=== PATIENT | female | born 1930 | race Hispanic/Latino ===

== ENCOUNTER 2017-04-29 14:22 | Inpatient (IN) | payer MEDICARE ==
[~2017-04-29] VITALS: Ht 129.5 cm; Wt 36.7 kg
[~2017-04-29 14:22] MED LIST: ALENDRONATE PO; AMLODIPINE PO; BENAZEPRIL PO; DONEPEZIL PO; LEVO500T89 PO
[2017-04-29 15:09] LABS: BASOPHILS % (AUTO) 0.8 % (0.0-5.0); EOSINOPHILS % (AUTO) 2.7 % (0.0-8.0); HEMATOCRIT 38.4 % (36-48); LYMPHOCYTES % (AUTO) 35.1 % (21.0-51.0); MEAN CORPUSCULAR HEMOGLOBIN 28.9 pg (27.0-33.0); MEAN CORPUSCULAR HGB CONC 33.7 g/dL (32.0-36.0); MEAN CORPUSCULAR VOLUME 85.6 fL (79-99); MONOCYTES % (AUTO) 13.6 % (3.0-13.0); NEUTROPHILS % (AUTO) 47.8 % (40.0-77.0); NUCLEATED RED BLOOD CELLS 0.1 % (0.0-0.19); PLATELET COUNT (AUTO) 112 K/uL (130-400); RED BLOOD CELL COUNT(AUTO) 4.49 MIL/uL (4.00-5.50); RED CELL DISTRIBUTION WIDTH 15.4 % (11.0-15.5); WHITE BLOOD COUNT (AUTO) 3.9 K/uL (4.8-10.8)
[2017-04-29 15:25] LABS: INR 0.96 (0.85-1.15); PARTIAL THROMBOPLASTIN TIME 30.6 SEC (26.3-35.5); PROTHROMBIN TIME 10.1 SEC (9.6-11.6)
[2017-04-29] MEDS ORDERED: NOREPINEPHRINE BITARTRATE 1 MG/1 ML ML IV ONE (15:27)
[2017-04-29 15:39] LABS: APPEARANCE,URINE Clear (CLEAR); BILIRUBIN,URINE Negative (NEGATIVE); COLOR,URINE Yellow (YELLOW); GLUCOSE, URINE (UA) Negative (NEGATIVE); KETONES,URINE Negative (NEGATIVE); LEUKOCYTE ESTERASE ,URINE Negative (NEGATIVE); NITRATE,URINE Negative (NEGATIVE); OCCULT BLOOD,URINE Negative (NEGATIVE); PH,URINE 6.5 (5.0-8.0); PROTEIN,URINE Negative (NEGATIVE)
[2017-04-29 15:41] LABS: ALBUMIN 2.8 g/dL (3.5-5.0); BILIRUBIN,TOTAL 0.5 mg/dL (0.2-1.0); CREATINE KINASE MB 3.4 ng/mL (0.5-3.6); CREATININE 1.5 mg/dL (0.5-1.5); TOTAL PROTEIN, SERUM 5.7 g/dL (6.0-8.3)
[2017-04-29 15:47] LABS: POTASSIUM 2.6 mmol/L (3.5-5.1); TROPONIN I 0.65 ng/mL (0.00-0.06)
[2017-04-29] MEDS ORDERED: CEFTRIAXONE SODIUM 1 GM ONE (15:48)
[2017-04-29] MEDS ORDERED: OSELTAMIVIR PHOSPHATE 75 MG CAP ONE (16:00)
[2017-04-29] MEDS ORDERED: POTASSIUM BICARB/CIT AC 25 MEQ TABLET.EFF ONE (16:01)
[2017-04-29] MEDS ORDERED: POTASSIUM CHLORIDE 20MEQ/100ML 100 ML IV ONE (16:01)
[2017-04-29] MEDS ORDERED: ONDANSETRON HCL 4 MG/2 ML VIAL ONE (16:34)
[2017-04-29] MEDS ORDERED: LEVOFLOXACIN 500 MG/D5W 100 ML 100 ML ONE (18:17)
[2017-04-29] MEDS ORDERED: SODIUM CHLORIDE 0.9% 1000ML 2,000 ML IV ONE (18:17)
[2017-04-29] MEDS: SODIUM CHLORIDE 0.9% 1000ML 1,000 ML IV SCH (22:08)
[2017-04-29] MEDS ORDERED: NOREPINEPHRINE 4MG/NS 250ML 250 ML IV SCH (22:15)
[2017-04-29] MEDS ORDERED: ONDANSETRON HCL 4 MG/2 ML VIAL IV PRN (22:15)
[2017-04-29] MEDS ORDERED: POTASSIUM CHLORIDE 10% ELIXIR 20 MEQ/15 ML UDCUP PO PRN (22:15)
[2017-04-29] MEDS ORDERED: GUAIFENESIN-DM 200/20 MG 10 ML PO PRN (22:15)
[2017-04-29] MEDS ORDERED: ACETAMINOPHEN 325 MG TAB PO PRN ×2 (22:15)
[2017-04-29] MEDS ORDERED: POTASSIUM CHLORIDE 20 MEQ ERTAB PO PRN (22:15)
[2017-04-29] MEDS ORDERED: NITROGLYCERIN 0.4 MG SL TAB SL PRN (22:15)
[2017-04-29 22:30] VITALS: BP 90/45
[2017-04-29 23:00] VITALS: BP 105/46
[2017-04-29] MEDS: LEVOFLOXACIN 500 MG/D5W 100 ML 100 ML IV SCH (23:00)
[2017-04-29] MEDS: IPRATROPIUM/ALBUTEROL SULFATE 3 ML SOLUTION IH SCH (23:17)
[2017-04-29 23:24] LABS: CREATINE KINASE MB 3.6 ng/mL (0.5-3.6); TROPONIN I 0.48 ng/mL (0.00-0.06)
[2017-04-30] VITALS (15 sets, daily range): BP systolic 90–141; BP diastolic 35–80
[2017-04-30 03:57] LABS: HEMATOCRIT 29.9 % (36-48); MEAN CORPUSCULAR HEMOGLOBIN 28.2 pg (27.0-33.0); MEAN CORPUSCULAR HGB CONC 33.3 g/dL (32.0-36.0); MEAN CORPUSCULAR VOLUME 84.8 fL (79-99); NUCLEATED RED BLOOD CELLS 0.1 % (0.0-0.19); PLATELET COUNT (AUTO) 92 K/uL (130-400); RED BLOOD CELL COUNT(AUTO) 3.53 MIL/uL (4.00-5.50); RED CELL DISTRIBUTION WIDTH 14.7 % (11.0-15.5); WHITE BLOOD COUNT (AUTO) 3.3 K/uL (4.8-10.8)
[2017-04-30 04:12] LABS: B-TYPE NATRIURETIC PEPTIDE 259 pg/mL (0-100)
[2017-04-30 04:18] LABS: ALBUMIN 2.3 g/dL (3.5-5.0); BILIRUBIN,TOTAL 0.2 mg/dL (0.2-1.0); TOTAL PROTEIN, SERUM 5.2 g/dL (6.0-8.3)
[2017-04-30 04:22] LABS: POTASSIUM 2.8 mmol/L (3.5-5.1)
[2017-04-30] MEDS: POTASSIUM CHLORIDE 20MEQ/100ML 100 ML IV PRN ×4 (05:30→17:40)
[2017-04-30] MEDS: IPRATROPIUM/ALBUTEROL SULFATE 3 ML SOLUTION IH SCH ×2 (06:40→10:58)
[2017-04-30] MEDS: FAMOTIDINE 20MG TAB 20 MG TAB PO SCH ×2 (08:38→20:05)
[2017-04-30] MEDS: OSELTAMIVIR PHOSPHATE 75 MG CAP PO SCH ×2 (08:38→20:05)
[2017-04-30] MEDS: ASPIRIN 325 MG TABLET PO SCH (08:38)
[2017-04-30] MEDS: LIDOCAINE HCL-MPF 1% 2ML VIAL IVP PRN ×3 (08:49→17:41)
[2017-04-30] MEDS ORDERED: ENOXAPARIN SODIUM 40 MG/0.4 ML SYRINGE SQ SCH (09:00)
[2017-04-30] MEDS ORDERED: DIGOXIN 250 MCG/ML 2ML AMP IV SCH (13:00)
[2017-04-30] MEDS: CARVEDILOL 3.125 MG TABLET PO SCH ×2 (13:28→19:56)
[2017-04-30] MEDS: IPRATROPIUM 0.5 MG/2.5 ML INH IH SCH ×3 (19:00→23:24)
[2017-04-30] MEDS: SODIUM CHLORIDE 0.9% 1000ML 1,000 ML IV SCH (20:05)
[2017-04-30] MEDS: LEVOFLOXACIN 500 MG/D5W 100 ML 100 ML IV SCH (22:13)
[2017-04-30] MEDS ORDERED: HALOPERIDOL LACTATE 5 MG/ML VIAL IV SCH (23:00)
[2017-04-30] MEDS ORDERED: HALOPERIDOL LACTATE 5 MG/ML VIAL ONE (23:03)
[2017-05-01 04:33] VITALS: BP 136/57
[2017-05-01 05:15] LABS: HEMATOCRIT 29.6 % (36-48); MEAN CORPUSCULAR HEMOGLOBIN 29.5 pg (27.0-33.0); MEAN CORPUSCULAR HGB CONC 34.8 g/dL (32.0-36.0); MEAN CORPUSCULAR VOLUME 84.7 fL (79-99); NUCLEATED RED BLOOD CELLS 0.1 % (0.0-0.19); PLATELET COUNT (AUTO) 101 K/uL (130-400); RED CELL DISTRIBUTION WIDTH 15.6 % (11.0-15.5); WHITE BLOOD COUNT (AUTO) 3.6 K/uL (4.8-10.8)
[2017-05-01 05:28] LABS: CREATININE 0.8 mg/dL (0.5-1.5); MAGNESIUM 1.5 mg/dL (1.80-2.40); POTASSIUM 3.8 mmol/L (3.5-5.1)
[2017-05-01] MEDS: IPRATROPIUM 0.5 MG/2.5 ML INH IH SCH ×2 (06:00→11:05)
[2017-05-01] MEDS: LIDOCAINE HCL-MPF 1% 2ML VIAL IVP PRN (06:25)
[2017-05-01] MEDS: POTASSIUM CHLORIDE 20MEQ/100ML 100 ML IV PRN (06:25)
[2017-05-01 07:46] VITALS: BP 102/56
[2017-05-01] MEDS: ASPIRIN 325 MG TABLET PO SCH (09:08)
[2017-05-01] MEDS: FAMOTIDINE 20MG TAB 20 MG TAB PO SCH (09:09)
[2017-05-01] MEDS: OSELTAMIVIR PHOSPHATE 75 MG CAP PO SCH (09:09)
[2017-05-01] MEDS: CARVEDILOL 3.125 MG TABLET PO SCH (09:09)
[2017-05-01] MEDS ORDERED: LEVO500T2 PO (09:28)
[2017-05-01] MEDS ORDERED: OSEL75 PO (09:28)
[2017-05-01 11:16] VITALS: BP 103/43
[2017-05-01] MEDS ORDERED: DONEPEZIL HCL 5 MG TAB PO SCH (21:00)
== END 2017-05-01 15:40 | disposition home or self-care (01) | DRG 871 ==
LOC: EDH 14:22 → EDHIP 16:00 → 2BH 22:33 → 2AH 04-30 18:57
PROVIDERS: ADMIT Internal Medicine; ATTEND Internal Medicine
DX: A41.9 Sepsis, unspecified organism (principal); R65.21 Severe sepsis with septic shock; J10.00 Influenza due to other identified influenza virus with unspecified type of pneumonia; D69.6 Thrombocytopenia, unspecified; N28.1 Cyst of kidney, acquired; G30.9 Alzheimer's disease, unspecified; F02.80 Dementia in other diseases classified elsewhere, unspecified severity, without behavioral disturbance, psychotic disturbance, mood disturbance, and anxiety; K57.90 Diverticulosis of intestine, part unspecified, without perforation or abscess without bleeding; I10 Essential (primary) hypertension; K82.8 Other specified diseases of gallbladder; E87.6 Hypokalemia
CPT/HCPCS: 36415; 71045; 74176; 76705; 80048; 80053; 81003; 82550; 82553; 83605; 83735; 83874; 83880; 84132; 84484; 85025; 85027; 85610; 85730; 87040; 87088; 87804; 93005; 93306; 93880; 94640; 94664; 99291; J0696; J1160; J1630; J1956; J2405; J3480; J3490; J7030

== ENCOUNTER 2017-08-12 14:39 | Emergency (ER) | payer MEDICARE ==
[~2017-08-12 14:39] MED LIST changes: +LEVO500T2 PO; -LEVO500T89 PO; +OSEL75 PO
[2017-08-12] MEDS ORDERED: ACETAMINOPHEN EXTRA STRENGTH 500 MG TABLET ONE (15:04)
== END 2017-08-12 16:50 | disposition home or self-care (01) ==
LOC: EDH 14:39
DX: S52.591A Other fractures of lower end of right radius, initial encounter for closed fracture (principal); S43.492A Other sprain of left shoulder joint, initial encounter; S43.491A Other sprain of right shoulder joint, initial encounter; I10 Essential (primary) hypertension; G30.9 Alzheimer's disease, unspecified; F02.80 Dementia in other diseases classified elsewhere, unspecified severity, without behavioral disturbance, psychotic disturbance, mood disturbance, and anxiety; Z87.891 Personal history of nicotine dependence; W18.39XA Other fall on same level, initial encounter; Y93.89 Activity, other specified; Y92.89 Other specified places as the place of occurrence of the external cause; Y99.8 Other external cause status
CPT/HCPCS: 29125; 70450; 71045; 72125; 73030; 73110

== ENCOUNTER 2018-10-15 14:55 | Emergency (ER) | payer MEDICARE | END 2018-10-15 18:41 | disposition home or self-care (01) | LOC: EDH 14:55 | DX: S32.592A Other specified fracture of left pubis, initial encounter for closed fracture (principal); I10 Essential (primary) hypertension; W17.89XA Other fall from one level to another, initial encounter; Y93.89 Activity, other specified; Y92.89 Other specified places as the place of occurrence of the external cause; Y99.8 Other external cause status | CPT/HCPCS: 70450; 72192; 73502; 73552 ==

== ENCOUNTER 2018-11-23 15:29 | Emergency (ER) | payer MEDICARE ==
[2018-11-23 16:34] LABS: BASOPHILS % (AUTO) 0.6 % (0.0-5.0); EOSINOPHILS % (AUTO) 2.9 % (0.0-8.0); HEMATOCRIT 36.5 % (36-48); LYMPHOCYTES % (AUTO) 18.3 % (21.0-51.0); MEAN CORPUSCULAR HEMOGLOBIN 26.2 pg (27.0-33.0); MEAN CORPUSCULAR HGB CONC 31.7 g/dL (32.0-36.0); MEAN CORPUSCULAR VOLUME 82.7 fL (79-99); MONOCYTES % (AUTO) 9.1 % (3.0-13.0); NEUTROPHILS % (AUTO) 69.1 % (40.0-77.0); PLATELET COUNT (AUTO) 151 K/uL (130-400); RED BLOOD CELL COUNT(AUTO) 4.41 MIL/uL (4.00-5.50); RED CELL DISTRIBUTION WIDTH 16.3 % (11.0-15.5); WHITE BLOOD COUNT (AUTO) 7.2 K/uL (4.8-10.8)
[2018-11-23 16:48] LABS: CREATININE 0.8 mg/dL (0.5-1.5); POTASSIUM 3.2 mmol/L (3.5-5.1)
[2018-11-23 16:53] LABS: ALBUMIN 3.2 g/dL (3.5-5.0); BILIRUBIN,TOTAL 0.5 mg/dL (0.2-1.0); TOTAL PROTEIN, SERUM 6.9 g/dL (6.0-8.3)
[2018-11-23] MEDS ORDERED: CEFAZOLIN SODIUM 1 GM VIAL ONE (17:34)
[2018-11-23] MEDS ORDERED: SODIUM CHLORIDE 0.9% 100 ML IV ONE (17:35)
== END 2018-11-23 20:02 | disposition home or self-care (01) ==
LOC: EDH 15:29
DX: S82.291A Other fracture of shaft of right tibia, initial encounter for closed fracture (principal); G30.9 Alzheimer's disease, unspecified; F02.80 Dementia in other diseases classified elsewhere, unspecified severity, without behavioral disturbance, psychotic disturbance, mood disturbance, and anxiety; I10 Essential (primary) hypertension; W22.03XA Walked into furniture, initial encounter; Y93.89 Activity, other specified; Y92.098 Other place in other non-institutional residence as the place of occurrence of the external cause; Y99.8 Other external cause status
CPT/HCPCS: 36415; 73590; 73630; 80053; 85025; 93971; 96365; 96366; 99285; J0690